=== PATIENT | male | born 1995 | race Caucasian/White ===

== ENCOUNTER 2018-11-21 16:24 | Emergency (ER) | payer SELFPAY ==
[2018-11-21 16:42] VITALS: BP 138/76
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
[2018-11-21] MEDS ORDERED: Tetan/Diph/Pertus SYR(Tdap)* 0.5 ML SYR(BOOSTRIX) use SYR IM ONE (16:53)
[2018-11-21] MEDS ORDERED: Ibuprofen TAB* 600 MG PO ONE (16:53)
== END 2018-11-21 17:33 | disposition home or self-care (01) ==
LOC: UCCORT 16:24
DX: S82.401A Unspecified fracture of shaft of right fibula, initial encounter for closed fracture (principal); S00.83XA Contusion of other part of head, initial encounter; W17.89XA Other fall from one level to another, initial encounter; Y93.39 Activity, other involving climbing, rappelling and jumping off; Y92.9 Unspecified place or not applicable
CPT/HCPCS: 90471; 90715; 99203; A9270-GY; G0463

== ENCOUNTER 2018-12-01 07:54 | Day surgery (SDC) | payer SELFPAY ==
[~2018-12-01 07:54] MED LIST: Buffered Lidocaine 1% SYRIN* 1 ML/SYRINGE INTRADERM ONE; Dexamethasone IV* 4 MG/ML 1 ML (4 MG) IV SLOW PU ONE; Famotidine IV* 10 MG/ML 2 ML (20 mg) IV ONE; Lactated Ringers 1000 ML Bag* 1,000 ML IV SCH
[2018-12-01] MEDS ORDERED: ceFAZolin 1 GM in Dextrose (*) 2 GM/100 ML BAG IVPB ONE (08:15)
[2018-12-01] MEDS ORDERED: Dexamethasone IV* 4 MG/ML 1 ML (4 MG) ONE (08:15)
[2018-12-01] MEDS ORDERED: Buffered Lidocaine 1% SYRIN* 1 ML/SYRINGE INTRADERM ONE (08:16)
[2018-12-01] MEDS ORDERED: Famotidine IV* 10 MG/ML 2 ML (20 mg) ONE (08:16)
[2018-12-01] MEDS ORDERED: ceFAZolin 2 GM PREMIX in ORs 2 GM/50 ML BAG IVPB ONE (09:02)
[2018-12-01] MEDS ORDERED: Bupivacaine 0.5%* 50 ML VIAL ONE (10:32)
[2018-12-01] MEDS ORDERED: Atracurium* 10 MG/ML 10 ML VIAL ONE (10:54)
[2018-12-01] MEDS ORDERED: Midazolam* 1 MG/ML 5 ML VIAL (5 MG) ONE (10:54)
[2018-12-01] MEDS ORDERED: fentaNYL* 50 MCG/ML 5 ML VIAL (250 MCG VIAL) ONE ×2 (10:54→11:18)
[2018-12-01] MEDS ORDERED: Ketorolac INJ* 30 MG/ML 1 ML VIAL ONE (10:55)
[2018-12-01] MEDS ORDERED: Ondansetron INJ* 2 MG/ML VIAL ONE (10:55)
[2018-12-01] MEDS ORDERED: Propofol* 10 MG/ML 20 ML BTL ONE (10:55)
[2018-12-01] MEDS ORDERED: Naloxone* 0.4 MG/ML 1 ML VIAL IV PRN (11:31)
[2018-12-01] MEDS ORDERED: DiMENhydriNATE IV* 50 MG/ML VIAL IV PUSH PRN (11:31)
[2018-12-01] MEDS ORDERED: Ondansetron INJ* 2 MG/ML VIAL IV PRN (11:31)
--- NOTE | 2018-12-01 12:27 | OP ---
Operative Report - Blank - Operative Report Date of Operation: 12/01/18 Note: PATIENT: Carlos Thompson DATE OF : 1995 DATE OF SURGERY: 12/01/2018 SURGEON: Piyush Manuel MD CUSTOMER FACILITIES SUPERVISOR: PARAMJIT Camara, whos assistance was necessary for positioning, retraction, help with instrumentation, and closure. ANESTHESIOLOGIST: Dr. Thompson PREOPERATIVE DIAGNOSIS: Right displaced lateral malleolus ankle fracture POSTOPERATIVE DIAGNOSIS: Right displaced lateral malleolus ankle fracture OPERATION: 1. Right ankle lateral malleolar fracture open reduction and internal fixation. 2. Stress views performed by surgeon utilizing fluoroscopy under anesthesia. ANESTHESIA: General IMPLANTS: Arthrex anatomic distal fibula plate and screws TOURNIQUET TIME: Less than 1 hour with a well-padded thigh tourniquet at 250mmHg SPECIMENS: none ESTIMATED BLOOD LOSS: minimal COMPLICATIONS: none STATUS: Stable from the operating room to the recovery room and then home. INDICATIONS FOR PROCEDURE: Carlos sustained a closed right ankle fracture. There was displacement of the lateral malleolus. Both operative and non operative treatment alternatives were reviewed. Further, the nature and risks of surgery were reviewed in careful detail, in the office as well as the pre-operative holding area. Our discussions regarding the risks of surgery included, but were not limited to, infection, wound problems, nerve injury, neuroma, RSD, persistent symptoms, blood clot, nonunion, malunion, post-traumatic arthritis, hardware failure, failure of the surgery, and even the remote chance of catastrophic complication , including loss of limb. DESCRIPTION OF PROCEDURE: The patient was seen in the preoperative holding unit and informed written consent was obtained. The appropriate extremity was marked. The patient was then brought to the operating room and carefully positioned on the operating room table. Anesthesia was induced. All bony prominences were padded with great care. A well-padded thigh tourniquet was placed. A chlorhexidine based pre- scrub was performed followed by a chloraprep prep and drape in standard sterile fashion. A surgical safety pause was then conducted in which we confirmed the appropriate patient, extremity, planned procedure, availability of equipment, indication and administration of prophylactic antibiotics, and DVT prophylaxis in the form of a compression boot on the non-surgical extremity. I began with Esmarch exsanguination of the limb and inflated the tourniquet. I then utilized a laterally based incision overlying the distal fibula. Great care was taken to protect the superficial peroneal nerve, which was not visualized within the field of view. I dissected down through the soft tissue layers to expose the distal fibula. I then exposed the fracture. Fracture hematoma was removed. I gained a reduction utilizing a pointed reduction clamp. I placed an anatomic Arthrex distal fibula plate laterally and then confirmed the reduction and the position of the plate fluoroscopically. I placed screws to hold the plate to the bone. The provisional fixation was removed and then I again confirmed fluoroscopically the appropriate position of the plate and screw lengths. At this point, I performed a stress fluoroscopic examination. I utilized a Cotton test, as well as an external rotation stress test, to evaluate the distal tib-fib syndesmosis. There was no instability appreciated through the syndesmosis or the medial clear space of the mortise. At this point, we irrigated copiously and then closed in layers meticulously utilizing 3-0 Monocryl for the deep and subdermal layers and ryder for the skin. A sterile dressing was then applied followed by a splint with the ankle in a neutral position. The patient was then awakened from anesthesia and transferred to the recovery room in stable condition. There were no complications. All needle and sponge counts were correct at the end of the case. ATTESTATION: I attest I was present and scrubbed and performed the critical portions of the procedure myself. POSTOPERATIVE PLAN: The postop plan is for [id number] for an anticipated duration of 6 weeks. Follow-up will be in 2 weeks. At that time we will likely transition into a [id number] aircast boot.
[2018-12-01] MEDS ORDERED: HYDROmorphone INJ1* 1 MG/ML SYRINGE ONE (12:41)
[2018-12-01] MEDS ORDERED: fentaNYL* 50 MCG/ML 2 ML VIAL (100 MCG VIAL) ONE (12:41)
[2018-12-01] MEDS: fentaNYL* 50 MCG/ML 2 ML VIAL (100 MCG VIAL) IV PRN ×2 (12:42→12:45)
[2018-12-01] MEDS: HYDROmorphone INJ1* 1 MG/ML SYRINGE IV PRN ×5 (12:43→13:39)
[2018-12-01 14:10] VITALS: BP 139/88
== END 2018-12-01 14:37 | disposition home or self-care (01) ==
LOC: OR 07:54
PROVIDERS: ATTEND Orthopaedic Surgery
DX: S82.61XA Displaced fracture of lateral malleolus of right fibula, initial encounter for closed fracture (principal); V48.1XXA Car passenger injured in noncollision transport accident in nontraffic accident, initial encounter; Y92.410 Unspecified street and highway as the place of occurrence of the external cause
CPT/HCPCS: 76000; C1713; C1776; J0690; J1100; J1170; J1885; J2250; J2405; J2704; J3010; J3490